=== PATIENT | male | born 1985 | race Caucasian/White ===

== ENCOUNTER 2021-06-11 00:33 | Inpatient (IN) | payer OTHER ==
[~2021-06-11] VITALS: Ht 177.8 cm; Wt 86.2 kg
--- NOTE | 2021-06-11 00:38 | NUR ---
INITIAL PT CONTACT. PT BIBA C/O ABD PAIN, NAUSEA, AND BLACK TARRY STOOLS X3 DAYS. PT DIAPHORETIC AND OBVIOUSLY IN DISCOMFORT UPON ARRIVAL. PT STATES 3 DAYS AGO "I FELT THIS POP TYPE SENSATION IN MY LOWER ABD, THEN I HAD THIS DARK STUFF COMING OUT OF MY BUTT." PT PLACED ON CONTINUOUS MONITORING, EKG UPON ARRIVAL. PT GIVEN 4MG ZOFRAN AND 250ML NS UPON ARRIVAL. PT PROVIDED URINAL PER REQUEST. NO ADDITIONAL NEEDS AT THIS TIME. AWAITING ERP.
[2021-06-11] MEDS ORDERED: ACETAMINOPHEN 500 MG TABLET ONE (00:49)
[2021-06-11] MEDS ORDERED: MORPHINE SULFATE 4 MG/ML, 1ML IVPush PRN (01:00)
[2021-06-11] MEDS ORDERED: SODIUM CHLORIDE 0.9% 1,000ML IVBOLUS ONE (01:00)
[2021-06-11] MEDS ORDERED: ONDANSETRON 2MG/ML, 2ML IVPush ONE (01:00)
[2021-06-11] MEDS ORDERED: ACETAMINOPHEN 500 MG TABLET PO ONE (01:00)
[2021-06-11] MEDS ORDERED: PLEASE ENTER ALLERGIES MC SCH ×2 (01:00→02:30)
[2021-06-11] MEDS ORDERED: SODIUM CHLORIDE FLUSH 10ML SYR IVF ONE (01:00)
[2021-06-11] MEDS ORDERED: ONDANSETRON 2MG/ML, 2ML ONE (01:01)
[2021-06-11] MEDS ORDERED: MORPHINE SULFATE 4 MG/ML, 1ML ONE (01:01)
--- NOTE | 2021-06-11 01:14 | NUR ---
PT 02 SAT DECREASED TO 88% ON ROOM AIR FOLLOWING GARMENT PRESSER, PLACED ON 2L O2 VIA NASAL CANNULA O2 SAT IMPROVED TO MID 90'S
[2021-06-11 01:18] LABS: AMPHETAMINE SCREEN, URINE Negative (Negative); BARBITURATE SCREEN, URINE Negative (Negative); BENZODIAZEPINE SCREEN, URINE Positive (Negative); CANNABINOID SCREEN, URINE Negative (Negative); COCAINE SCREEN, URINE Negative (Negative); METHADONE SCREEN, URINE Negative (Negative); OPIATE SCREEN, URINE Negative (Negative)
[2021-06-11 01:18] LABS: MICROSCOPIC INDICATED
[2021-06-11 01:24] LABS: MEAN CORPUSCULAR HEMOGLOBIN 31.6 pg (27.5-34.5); MEAN CORPUSCULAR HGB CONC 35.2 g/dL (33.2-36.2); MEAN PLATELET VOLUME 8.3 fL (7.4-10.4); PLATELET COUNT 195 x10^3/uL (130-400); RED BLOOD COUNT 4.82 x10^6/uL (4.38-5.82); RED CELL DISTRIBUTION WIDTH 12.5 % (9.4-14.8)
[2021-06-11 01:33] LABS: ALANINE AMINOTRANSFERASE 97 U/L (12-78); ALBUMIN 3.1 g/dL (3.4-5.0); ANION GAP 7 mmol/L (5-15); CALCIUM 8.3 mg/dL (8.5-10.1); CHLORIDE 103 mmol/L (98-107); CREATININE 1.27 mg/dL (0.7-1.3)
[2021-06-11 01:36] LABS: ALKALINE PHOSPHATASE 99 U/L (45-117); BILIRUBIN,TOTAL 1.6 mg/dL (0.2-1.0); TOTAL PROTEIN 7.6 g/dL (6.4-8.2)
[2021-06-11 01:44] LABS: BAND#(MANUAL) 1.92 x10^3/uL; BANDS%(MANUAL) 16 % (0-7); LYMPH#(MANUAL) 0.36 x10^3/uL (1-3.4); LYMPHS% (MANUAL) 3 % (22-44); MONOS#(MANUAL) 0.24 x10^3/uL (0.3-2.7); MONOS% (MANUAL) 2 % (2-9); POLYCHROMASIA 1+; SEG#(MANUAL) 9.48 x10^3/uL (1.8-6.8); SEGS% (MANUAL) 79 % (42-75)
[2021-06-11 01:45] LABS: <PLATELET ESTIMATE> ADEQUATE; LARGE PLATELETS 1+; PMNS WITH VACUOLES 1+
[2021-06-11] MEDS ORDERED: METRONIDAZOLE PMX 500MG/100ML 100 ML IV ONE (04:00)
[2021-06-11] MEDS ORDERED: CIPROFLOXACIN/PMX 400MG/200ML 200 ML IVPB ONE (04:00)
[2021-06-11] MEDS ORDERED: OXYcodone IR 5MG TABLET PO PRN (04:30)
[2021-06-11] MEDS ORDERED: LABETALOL 5MG/ML, 20ML IVPush PRN (04:30)
[2021-06-11] MEDS ORDERED: POLYETHYLENE GLYCOL 17 GM PACKET PO PRN (04:30)
[2021-06-11] MEDS ORDERED: morphine SULFATE 10 MG/ML, 1ML IVPush PRN (04:30)
[2021-06-11] MEDS ORDERED: ONDANSETRON 2MG/ML, 2ML IVPush PRN (04:30)
[2021-06-11] MEDS ORDERED: MELATONIN 5 MG TABLET PO PRN (04:30)
[2021-06-11] MEDS ORDERED: CIPROFLOXACIN 500 MG TABLET PO SCH (04:30)
[2021-06-11] MEDS ORDERED: LACTATED RINGERS 1,000 ML IV SCH (04:30)
[2021-06-11] MEDS ORDERED: METRONIDAZOLE PMX 500MG/100ML 100 ML ONE (04:34)
[2021-06-11] MEDS ORDERED: CIPROFLOXACIN/PMX 400MG/200ML 200 ML ONE (04:34)
--- NOTE | 2021-06-11 05:07 | NUR ---
Pt to be admitted to MEDICAL, room 368. Report called to ALONDRA GOODWIN.
[2021-06-11 06:15] VITALS: BP 110/73
[2021-06-11 08:07] VITALS: BP 109/72
[2021-06-11] MEDS: ACETAMINOPHEN 325 MG TABLET PO PRN ×3 (08:19→20:37)
[2021-06-11] MEDS: ENOXAPARIN 40 MG/0.4 ML SQ SCH (09:30)
[2021-06-11] MEDS: FAMOTIDINE 20 MG/2 ML IVPush SCH ×2 (09:30→20:37)
[2021-06-11] MEDS ORDERED: metroNIDAZOLE 500 MG TABLET PO SCH (10:00)
[2021-06-11 10:23] LABS: OCCULT BLOOD NEGATIVE (NEGATIVE)
[2021-06-11] MEDS: PIPERACILLIN/TAZO 3.375 GM in DEXTROSE 5% 50 ML IV SCH ×3 (11:53→22:57)
[2021-06-11] MEDS: SODIUM CHLORIDE 0.9% 1,000 ML IV SCH (14:36)
[2021-06-11 15:25] VITALS: BP 96/66
[2021-06-11 15:46] LABS: OCCULT BLOOD NEGATIVE (NEGATIVE)
[2021-06-11 17:59] VITALS: BP 110/73
[2021-06-11] MEDS ORDERED: BUSP5TAB2 PO (20:00)
[2021-06-11] MEDS ORDERED: OMEP40CA8 PO (20:00)
[2021-06-11] MEDS ORDERED: ALPR0.254 PO (20:00)
[2021-06-11 21:26] VITALS: BP_SYST 102; BP_SYST 62; BP_DIAS 66
[2021-06-12 01:19] VITALS: BP 104/67
[2021-06-12] MEDS: SODIUM CHLORIDE 0.9% 1,000 ML IV SCH ×2 (01:46→09:32)
[2021-06-12] MEDS ORDERED: LACTATED RINGERS 1,000 ML IV SCH (04:30)
[2021-06-12] MEDS: PIPERACILLIN/TAZO 3.375 GM in DEXTROSE 5% 50 ML IV SCH ×4 (05:25→22:52)
[2021-06-12 07:55] LABS: MEAN CORPUSCULAR HEMOGLOBIN 31.6 pg (27.5-34.5); MEAN CORPUSCULAR HGB CONC 34.8 g/dL (33.2-36.2); MEAN PLATELET VOLUME 8.6 fL (7.4-10.4); PLATELET COUNT 177 x10^3/uL (130-400); RED BLOOD COUNT 4.13 x10^6/uL (4.38-5.82); RED CELL DISTRIBUTION WIDTH 12.8 % (9.4-14.8)
[2021-06-12 08:05] LABS: ANION GAP 9 mmol/L (5-15); CALCIUM 8.4 mg/dL (8.5-10.1); CHLORIDE 98 mmol/L (98-107)
[2021-06-12 08:06] LABS: CREATININE 1.03 mg/dL (0.7-1.3)
[2021-06-12 08:37] LABS: <RBC MORPHOLOGY> NORMAL; BAND#(MANUAL) 1.23 x10^3/uL; BANDS%(MANUAL) 9 % (0-7); LYMPH#(MANUAL) 0.69 x10^3/uL (1-3.4); LYMPHS% (MANUAL) 5 % (22-44); MONOS#(MANUAL) 0.14 x10^3/uL (0.3-2.7); MONOS% (MANUAL) 1 % (2-9); SEG#(MANUAL) 11.65 x10^3/uL (1.8-6.8); SEGS% (MANUAL) 85 % (42-75)
[2021-06-12 08:38] LABS: <PLATELET ESTIMATE> DECREASED; <PLT MORPHOLOGY> NORMAL PLT MORPH
[2021-06-12 08:54] VITALS: BP 122/72
[2021-06-12] MEDS: ACETAMINOPHEN 325 MG TABLET PO PRN ×2 (09:32→16:43)
[2021-06-12] MEDS: FAMOTIDINE 20 MG/2 ML IVPush SCH ×2 (09:32→20:03)
[2021-06-12] MEDS: ENOXAPARIN 40 MG/0.4 ML SQ SCH (09:32)
[2021-06-12 16:40] VITALS: BP 124/85
[2021-06-12] MEDS ORDERED: HYDR-3342 PO (17:48)
[2021-06-12 19:43] VITALS: BP 110/70
[2021-06-12] MEDS: CEFTRIAXONE 2 GM in DEXTROSE 5% 50 ML IVPB SCH (20:03)
[2021-06-12] MEDS: BUSPIRONE 5 MG TABLET PO SCH (20:03)
[2021-06-12] MEDS ORDERED: BUSPIRONE 5 MG TABLET PO SCH (21:00)
[2021-06-12] MEDS: NICOTINE 14MG/24 HR PATCH.TD24 TD SCH (22:52)
[2021-06-13 01:07] VITALS: BP 120/77
[2021-06-13] MEDS: PIPERACILLIN/TAZO 3.375 GM in DEXTROSE 5% 50 ML IV SCH ×4 (05:11→23:52)
[2021-06-13] MEDS: OMEPRAZOLE 20 MG CAPSULE.DR PO SCH (05:11)
[2021-06-13 05:44] LABS: BASOPHILS % (AUTO) 0 % (0-1); EOSINOPHILS % (AUTO) 0 % (1-7); LYMPHOCYTES % (AUTO) 9 % (22-44); MEAN CORPUSCULAR HEMOGLOBIN 31.1 pg (27.5-34.5); MEAN CORPUSCULAR HGB CONC 34.9 g/dL (33.2-36.2); MEAN PLATELET VOLUME 9.4 fL (7.4-10.4); MONOCYTES % (AUTO) 10 % (2-9); NEUTROPHILS % (AUTO) 81 % (42-75); PLATELET COUNT 211 x10^3/uL (130-400); RED BLOOD COUNT 4.26 x10^6/uL (4.38-5.82); RED CELL DISTRIBUTION WIDTH 12.8 % (9.4-14.8)
[2021-06-13 05:49] LABS: ANION GAP 8 mmol/L (5-15); CHLORIDE 103 mmol/L (98-107)
[2021-06-13 05:50] LABS: CREATININE 0.84 mg/dL (0.7-1.3)
[2021-06-13 07:10] VITALS: BP 156/66
[2021-06-13] MEDS ORDERED: POTASSIUM CHLORIDE 20 MEQ TAB.ER.PRT PO ONE (07:30)
[2021-06-13] MEDS ORDERED: POTASSIUM PHOSPHATE 44 MEQ in SODIUM CHLORIDE 0.9% 500 ML IV ONE (07:30)
[2021-06-13] MEDS: FAMOTIDINE 20 MG/2 ML IVPush SCH (09:24)
[2021-06-13] MEDS: ENOXAPARIN 40 MG/0.4 ML SQ SCH (09:24)
[2021-06-13] MEDS: BUSPIRONE 5 MG TABLET PO SCH ×2 (09:24→20:23)
[2021-06-13 12:14] VITALS: BP 121/79
[2021-06-13] MEDS: ACETAMINOPHEN 325 MG TABLET PO PRN (12:28)
[2021-06-13] MEDS: NICOTINE 14MG/24 HR PATCH.TD24 TD SCH (18:31)
[2021-06-13 19:27] VITALS: BP 130/83
[2021-06-13] MEDS: FAMOTIDINE 20 MG TABLET PO SCH (20:23)
[2021-06-13] MEDS: CEFTRIAXONE 2 GM in DEXTROSE 5% 50 ML IVPB SCH (20:23)
[2021-06-14 01:11] VITALS: BP 122/76
[2021-06-14] MEDS: ACETAMINOPHEN 325 MG TABLET PO PRN ×3 (03:08→20:28)
[2021-06-14 05:25] LABS: BASOPHILS % (AUTO) 0 % (0-1); EOSINOPHILS % (AUTO) 2 % (1-7); LYMPHOCYTES % (AUTO) 13 % (22-44); MEAN CORPUSCULAR HEMOGLOBIN 31.9 pg (27.5-34.5); MEAN CORPUSCULAR HGB CONC 35.5 g/dL (33.2-36.2); MEAN PLATELET VOLUME 9.1 fL (7.4-10.4); MONOCYTES % (AUTO) 13 % (2-9); NEUTROPHILS % (AUTO) 71 % (42-75); PLATELET COUNT 236 x10^3/uL (130-400); RED BLOOD COUNT 4.43 x10^6/uL (4.38-5.82); RED CELL DISTRIBUTION WIDTH 13.1 % (9.4-14.8)
[2021-06-14 05:35] LABS: ALBUMIN 2.4 g/dL (3.4-5.0); CALCIUM 8.5 mg/dL (8.5-10.1); CHLORIDE 105 mmol/L (98-107)
[2021-06-14 05:40] LABS: ALANINE AMINOTRANSFERASE 104 U/L (12-78); ALKALINE PHOSPHATASE 107 U/L (45-117); ANION GAP 7 mmol/L (5-15); BILIRUBIN,TOTAL 1.2 mg/dL (0.2-1.0); CREATININE 0.84 mg/dL (0.7-1.3); TOTAL PROTEIN 7.3 g/dL (6.4-8.2)
[2021-06-14] MEDS: PIPERACILLIN/TAZO 3.375 GM in DEXTROSE 5% 50 ML IV SCH ×3 (05:40→19:48)
[2021-06-14] MEDS: OMEPRAZOLE 20 MG CAPSULE.DR PO SCH (05:41)
[2021-06-14 07:11] VITALS: BP 116/70
[2021-06-14] MEDS: BUSPIRONE 5 MG TABLET PO SCH ×3 (09:00→20:29)
[2021-06-14] MEDS: FAMOTIDINE 20 MG TABLET PO SCH ×2 (09:33→20:28)
[2021-06-14] MEDS: ENOXAPARIN 40 MG/0.4 ML SQ SCH (09:40)
[2021-06-14 13:52] VITALS: BP 130/82
[2021-06-14] MEDS: NICOTINE 14MG/24 HR PATCH.TD24 TD SCH (19:48)
[2021-06-14 20:14] VITALS: BP 135/84
[2021-06-14] MEDS: CEFTRIAXONE 2 GM in DEXTROSE 5% 50 ML IVPB SCH (20:27)
[2021-06-15] MEDS: PIPERACILLIN/TAZO 3.375 GM in DEXTROSE 5% 50 ML IV SCH ×4 (00:32→19:58)
[2021-06-15 00:35] VITALS: BP 132/85
[2021-06-15] MEDS: ACETAMINOPHEN 325 MG TABLET PO PRN (04:07)
[2021-06-15] MEDS: OMEPRAZOLE 20 MG CAPSULE.DR PO SCH (06:30)
[2021-06-15 07:58] VITALS: BP 124/86
[2021-06-15] MEDS: BUSPIRONE 5 MG TABLET PO SCH ×2 (09:00→21:00)
[2021-06-15] MEDS: FAMOTIDINE 20 MG TABLET PO SCH ×2 (09:32→19:59)
[2021-06-15] MEDS: ENOXAPARIN 40 MG/0.4 ML SQ SCH (09:33)
[2021-06-15] MEDS: OXYcodone/APAP 10/325MG TABLET PO PRN ×2 (13:21→17:42)
[2021-06-15 13:35] VITALS: BP 136/90
[2021-06-15] MEDS: LACTOBACILLUS CHEW TABLET PO SCH ×2 (16:37→19:59)
[2021-06-15 18:45] VITALS: BP 134/81
[2021-06-15 18:57] LABS: CLOSTRIDIUM DIFFICILE TOXIN NEGATIVE (Negative)
[2021-06-15] MEDS: NICOTINE 14MG/24 HR PATCH.TD24 TD SCH (19:00)
[2021-06-15 19:09] LABS: CLOSTRIDIUM DIFFICILE ANTIGEN POSITIVE
[2021-06-16] MEDS: PIPERACILLIN/TAZO 3.375 GM in DEXTROSE 5% 50 ML IV SCH ×4 (00:55→19:59)
[2021-06-16] MEDS: OXYcodone/APAP 10/325MG TABLET PO PRN ×3 (00:58→18:02)
[2021-06-16 01:16] VITALS: BP 122/76
[2021-06-16] MEDS: OMEPRAZOLE 20 MG CAPSULE.DR PO SCH (06:20)
[2021-06-16 07:58] VITALS: BP 117/76
[2021-06-16] MEDS: VANCOMYCIN 50 MG/ML ORAL SUSP PO SCH ×3 (08:36→19:58)
[2021-06-16] MEDS: ENOXAPARIN 40 MG/0.4 ML SQ SCH (08:36)
[2021-06-16] MEDS: FAMOTIDINE 20 MG TABLET PO SCH ×2 (08:36→19:58)
[2021-06-16] MEDS: LACTOBACILLUS CHEW TABLET PO SCH ×3 (08:36→19:58)
[2021-06-16] MEDS: BUSPIRONE 5 MG TABLET PO SCH ×2 (08:36→19:58)
[2021-06-16 13:52] VITALS: BP 124/82
[2021-06-16 18:43] VITALS: BP 128/84
[2021-06-16] MEDS: NICOTINE 14MG/24 HR PATCH.TD24 TD SCH (19:00)
[2021-06-17 00:18] VITALS: BP 108/76
[2021-06-17] MEDS: PIPERACILLIN/TAZO 3.375 GM in DEXTROSE 5% 50 ML IV SCH ×4 (00:33→19:50)
[2021-06-17] MEDS: OXYcodone/APAP 10/325MG TABLET PO PRN ×4 (00:38→20:46)
[2021-06-17] MEDS: VANCOMYCIN 50 MG/ML ORAL SUSP PO SCH ×5 (01:53→20:46)
[2021-06-17] MEDS: OMEPRAZOLE 20 MG CAPSULE.DR PO SCH (05:10)
[2021-06-17 05:34] LABS: BASOPHILS % (AUTO) 1 % (0-1); EOSINOPHILS % (AUTO) 4 % (1-7); LYMPHOCYTES % (AUTO) 26 % (22-44); MEAN CORPUSCULAR HGB CONC 35.1 g/dL (33.2-36.2); MEAN PLATELET VOLUME 8.6 fL (7.4-10.4); MONOCYTES % (AUTO) 10 % (2-9); NEUTROPHILS % (AUTO) 59 % (42-75); PLATELET COUNT 428 x10^3/uL (130-400); RED BLOOD COUNT 4.59 x10^6/uL (4.38-5.82); RED CELL DISTRIBUTION WIDTH 13.1 % (9.4-14.8)
[2021-06-17 05:39] LABS: ALANINE AMINOTRANSFERASE 78 U/L (12-78); ALBUMIN 2.7 g/dL (3.4-5.0); ANION GAP 6 mmol/L (5-15); CALCIUM 9.2 mg/dL (8.5-10.1); CHLORIDE 105 mmol/L (98-107); CREATININE 0.95 mg/dL (0.7-1.3)
[2021-06-17 05:41] LABS: ALKALINE PHOSPHATASE 120 U/L (45-117); BILIRUBIN,TOTAL 0.8 mg/dL (0.2-1.0); TOTAL PROTEIN 7.9 g/dL (6.4-8.2)
[2021-06-17] MEDS: BUSPIRONE 5 MG TABLET PO SCH ×3 (09:00→20:46)
[2021-06-17 09:46] VITALS: BP 115/76
[2021-06-17] MEDS: ENOXAPARIN 40 MG/0.4 ML SQ SCH (09:56)
[2021-06-17] MEDS: LACTOBACILLUS CHEW TABLET PO SCH ×3 (09:56→20:46)
[2021-06-17] MEDS: FAMOTIDINE 20 MG TABLET PO SCH ×2 (09:56→20:46)
[2021-06-17 13:21] VITALS: BP 118/72
[2021-06-17] MEDS: METRONIDAZOLE PMX 500MG/100ML 100 ML IV SCH ×2 (15:14→23:15)
[2021-06-17] MEDS: NICOTINE 14MG/24 HR PATCH.TD24 TD SCH (19:00)
[2021-06-17 19:49] VITALS: BP 110/66
[2021-06-18] MEDS: PIPERACILLIN/TAZO 3.375 GM in DEXTROSE 5% 50 ML IV SCH ×3 (01:47→14:04)
[2021-06-18] MEDS: VANCOMYCIN 50 MG/ML ORAL SUSP PO SCH ×4 (01:47→21:09)
[2021-06-18] MEDS: OMEPRAZOLE 20 MG CAPSULE.DR PO SCH (06:04)
[2021-06-18 07:23] VITALS: BP 110/68
[2021-06-18] MEDS: BUSPIRONE 5 MG TABLET PO SCH ×2 (08:37→21:00)
[2021-06-18] MEDS: FAMOTIDINE 20 MG TABLET PO SCH ×2 (08:38→21:09)
[2021-06-18] MEDS: ENOXAPARIN 40 MG/0.4 ML SQ SCH (08:38)
[2021-06-18] MEDS: LACTOBACILLUS CHEW TABLET PO SCH ×3 (08:39→21:09)
[2021-06-18] MEDS: METRONIDAZOLE PMX 500MG/100ML 100 ML IV SCH ×2 (08:39→19:38)
[2021-06-18] MEDS: OXYcodone/APAP 10/325MG TABLET PO PRN (10:03)
[2021-06-18 13:47] VITALS: BP 125/83
[2021-06-18] MEDS: AMPICILLIN/SULBACTAM 3 GM in SODIUM CHLORIDE 0.9% 100 ML IV SCH (18:25)
[2021-06-18] MEDS: NICOTINE 14MG/24 HR PATCH.TD24 TD SCH (19:00)
[2021-06-18 19:32] VITALS: BP 118/83
[2021-06-19 00:25] VITALS: BP 102/67
[2021-06-19] MEDS: AMPICILLIN/SULBACTAM 3 GM in SODIUM CHLORIDE 0.9% 100 ML IV SCH ×3 (00:31→12:30)
[2021-06-19] MEDS: VANCOMYCIN 50 MG/ML ORAL SUSP PO SCH ×3 (03:29→15:00)
[2021-06-19] MEDS: METRONIDAZOLE PMX 500MG/100ML 100 ML IV SCH ×2 (03:29→12:30)
[2021-06-19] MEDS: OMEPRAZOLE 20 MG CAPSULE.DR PO SCH (06:06)
[2021-06-19 06:47] LABS: MEAN CORPUSCULAR HEMOGLOBIN 31.6 pg (27.5-34.5); MEAN CORPUSCULAR HGB CONC 35.1 g/dL (33.2-36.2); MEAN PLATELET VOLUME 8.1 fL (7.4-10.4); PLATELET COUNT 519 x10^3/uL (130-400); RED BLOOD COUNT 4.81 x10^6/uL (4.38-5.82); RED CELL DISTRIBUTION WIDTH 13.1 % (9.4-14.8)
[2021-06-19 06:50] LABS: ANION GAP 5 mmol/L (5-15); CHLORIDE 102 mmol/L (98-107)
[2021-06-19 06:52] LABS: CREATININE 0.92 mg/dL (0.7-1.3)
[2021-06-19 07:48] LABS: <PLATELET ESTIMATE> INCREASED; <PLT MORPHOLOGY> NORMAL PLT MORPH; <RBC MORPHOLOGY> NORMAL; BAND#(MANUAL) 0.17 x10^3/uL; BANDS%(MANUAL) 2 % (0-7); EOS#(MANUAL) 0.17 x10^3/uL (0.0-0.4); EOS% (MANUAL) 2 % (1-7); LYMPH#(MANUAL) 2.44 x10^3/uL (1-3.4); LYMPHS% (MANUAL) 29 % (22-44); METAMYELOCYTES# (MANUAL) 0.08 x10^3/uL (0-0); METAMYELOCYTES% (MANUAL) 1 % (0-1); MONOS% (MANUAL) 6 % (2-9); SEG#(MANUAL) 5.04 x10^3/uL (1.8-6.8); SEGS% (MANUAL) 60 % (42-75)
[2021-06-19 08:03] VITALS: BP 101/72
[2021-06-19] MEDS: BUSPIRONE 5 MG TABLET PO SCH (08:56)
[2021-06-19] MEDS: LACTOBACILLUS CHEW TABLET PO SCH (08:56)
[2021-06-19] MEDS: FAMOTIDINE 20 MG TABLET PO SCH (08:56)
[2021-06-19] MEDS: ENOXAPARIN 40 MG/0.4 ML SQ SCH (08:56)
[2021-06-19 13:09] VITALS: BP 116/75
[2021-06-19] MEDS ORDERED: OXYC1TAB12 PO (13:09)
[2021-06-19] MEDS ORDERED: ACID1TAB7 PO (13:09)
[2021-06-19] MEDS ORDERED: AMOX1TAB64 PO (13:09)
[2021-06-19] MEDS ORDERED: VANC125C3 PO (13:09)
[2021-06-19 14:24] VITALS: BP 131/89
== END 2021-06-19 16:20 | disposition home or self-care (01) | DRG 872 ==
LOC: ED 00:43 → EDIP 04:26 → 3N 05:35
PROVIDERS: ADMIT Internal Medicine; ATTEND Internal Medicine
PROC: 02HV33Z Insertion of Infusion Device into Superior Vena Cava, Percutaneous Approach (ICD-10-PCS; principal; 2021-06-16)
PROC: B5181ZA Fluoroscopy of Superior Vena Cava using Low Osmolar Contrast, Guidance (ICD-10-PCS; 2021-06-16)
PROC: B548ZZA Ultrasonography of Superior Vena Cava, Guidance (ICD-10-PCS; 2021-06-16)
DX: A41.9 Sepsis, unspecified organism (principal); K57.32 Diverticulitis of large intestine without perforation or abscess without bleeding; A04.72 Enterocolitis due to Clostridium difficile, not specified as recurrent; F41.1 Generalized anxiety disorder; Z20.822 Contact with and (suspected) exposure to COVID-19; K21.9 Gastro-esophageal reflux disease without esophagitis; K76.0 Fatty (change of) liver, not elsewhere classified; D72.825 Bandemia; R74.01 Elevation of levels of liver transaminase levels
CPT/HCPCS: 36415; 84145; 96361; 96374; 99285; J3370; 36573; 70450; 74177; 80048; 80053; 80307; 80320; 81001; 82272; 83605; 83735; 84100; 85025; 87040; 87077; 87086; 87324; 93005; 93306; G0378; J0295; J0696; J0744; J1650; J2405; J2543; U0005; C1751; G0480; J2270; J7030; J7040; J7120; U0003